=== PATIENT | female | born 1950 | race American Indian/Alaskan Native ===

== ENCOUNTER 2017-09-08 21:55 | Emergency (ER) | payer MEDICARE ==
[2017-09-08 23:31] VITALS: BP 154/82
[2017-09-09 03:24] LABS: Hematocrit 38.3 % (30.3-42.9); Hemoglobin 12.9 gm/dl (10.1-14.3); Mean Corpuscular HGB Conc 34 % (30-34); Mean Corpuscular Hemoglobin 30 pg (28-32); Mean Corpuscular Volume 90 fl (79-97); Platelet Count 319 K/mm3 (140-440); Red Blood Count 4.24 M/mm3 (3.65-5.03); Red Cell Distribution Width 13.2 % (13.2-15.2)
[2017-09-09 03:39] LABS: Alanine Aminotransferase 29 units/L (7-56); Albumin 4.5 g/dL (3.9-5); BUN/Creatinine Ratio 10; Blood Urea Nitrogen 10 mg/dL (7-17); Calcium 9.7 mg/dL (8.4-10.2); Hemolysis Index 0
--- NOTE | 2017-09-09 03:56 | Emergency Department Report ---
- General Chief complaint: Skin Rash Stated complaint: WOUNDS/RASH Time Seen by Provider: 09/09/17 01:37 Source: patient Mode of arrival: Ambulatory Limitations: No Limitations - History of Present Illness Initial comments: 66-year-old -[place] female comes in for rash stat is located near her incision from her kidney removal on 08/04/2017. Patient reports that decision has been draining in the middle abdominal incision is tender and has a rash around it with redness to the skin no fever reported. Patient reports that this rash is very itchy that she is not able to take any hydralazine of Benadryl since in the past has made her feel funny. Patient reports that she was placed on Keflex for a mild cellulitis to one of the incisions. MD complaint: rash -: days(s) (4) Severity scale (0 -10): 4 - Related Data Home Medications Medication Instructions Recorded Confirmed Last Taken Benazepril (Nf) 40 mg PO DAILY 12/30/12 12/30/12 Unknown Docusate Sodium [Colace CAP] 100 mg PO BID 12/30/12 12/30/12 Unknown Duloxetine HCl [Cymbalta] 120 mg PO DAILY 12/30/12 12/30/12 Unknown Levothyroxine [Synthroid] 100 mcg PO DAILY 12/30/12 12/30/12 Unknown Pravastatin Sodium [Pravastatin] 20 mg PO QHS 12/30/12 12/30/12 Unknown Zolpidem [Ambien] 10 mg PO QHS 12/30/12 12/30/12 Unknown amLODIPine [Norvasc] 5 mg PO BID 12/30/12 12/30/12 Unknown cloNIDine [Catapres] 0.2 mg PO BID 12/30/12 12/30/12 Unknown metFORMIN [Glucophage] 500 mg PO BID 12/30/12 12/30/12 Unknown risperiDONE [RisperDAL] 1 mg PO QHS 12/30/12 12/30/12 Unknown Previous Rx's Medication Instructions Recorded Last Taken Type Aspirin EC [Aspirin Enteric Coated 81 mg PO QDAY #30 tablet. 12/30/12 Unknown Rx TAB] Famotidine [Pepcid] 10 mg PO BID #60 tablet 12/30/12 Unknown Rx Nystatin Cream [Mycostatin Cream] 1 applic TP BID #1 tube 09/09/17 Unknown Rx Allergies Allergy/AdvReac Type Severity Reaction Status Date / Time hydralazine [Hydralazine] Allergy Rash Verified 12/29/12 22:29 Abscess Boil HPI - HPI Chief Complaint: Skin Rash Stated Complaint: WOUNDS/RASH Time Seen by Provider: 09/09/17 01:37 Home Medications: Home Medications Medication Instructions Recorded Confirmed Last Taken Benazepril (Nf) 40 mg PO DAILY 12/30/12 12/30/12 Unknown Docusate Sodium [Colace CAP] 100 mg PO BID 12/30/12 12/30/12 Unknown Duloxetine HCl [Cymbalta] 120 mg PO DAILY 12/30/12 12/30/12 Unknown Levothyroxine [Synthroid] 100 mcg PO DAILY 12/30/12 12/30/12 Unknown Pravastatin Sodium [Pravastatin] 20 mg PO QHS 12/30/12 12/30/12 Unknown Zolpidem [Ambien] 10 mg PO QHS 12/30/12 12/30/12 Unknown amLODIPine [Norvasc] 5 mg PO BID 12/30/12 12/30/12 Unknown cloNIDine [Catapres] 0.2 mg PO BID 12/30/12 12/30/12 Unknown metFORMIN [Glucophage] 500 mg PO BID 12/30/12 12/30/12 Unknown risperiDONE [RisperDAL] 1 mg PO QHS 12/30/12 12/30/12 Unknown Previous Rx's Medication Instructions Recorded Last Taken Type Aspirin EC [Aspirin Enteric Coated 81 mg PO QDAY #30 tablet.dr 12/30/12 Unknown Rx TAB] Famotidine [Pepcid] 10 mg PO BID #60 tablet 12/30/12 Unknown Rx Nystatin Cream [Mycostatin Cream] 1 applic TP BID #1 tube 09/09/17 Unknown Rx Allergies/Adverse Reactions: Allergies Allergy/AdvReac Type Severity Reaction Status Date / Time hydralazine [Hydralazine] Allergy Rash Verified 12/29/12 22:29 ED Review of Systems ROS: Stated complaint: WOUNDS/RASH Other details as noted in HPI Constitutional: denies: chills, fever Gastrointestinal: denies: abdominal pain, nausea, diarrhea Skin: rash, pruritus Neurological: denies: headache, weakness, paresthesias ED Past Medical Hx - Past Medical History Previous Medical History?: Yes Hx Hypertension: Yes Hx Congestive Heart Failure: No Hx Diabetes: Yes Hx Arthritis: Yes Hx Seizures: Yes Hx Psychiatric Treatment: Yes (PTSD) Hx Asthma: Yes Hx COPD: No Additional medical history: MVP, spinal stenosis, hypothyroidism, sleep apnea - Surgical History Past Surgical History?: Yes Additional Surgical History: hysterectomy, sinus surgery, rectoseal surgery, goiter removed, Left Kidney removed 08/04/17 - Social History Smoking Status: Never Smoker - Medications Home Medications: Home Medications Medication Instructions Recorded Confirmed Last Taken Type Aspirin EC [Aspirin Enteric Coated 81 mg PO QDAY #30 tablet.dr 12/30/12 Unknown Rx TAB] Benazepril (Nf) 40 mg PO DAILY 12/30/12 12/30/12 Unknown History Docusate Sodium [Colace CAP] 100 mg PO BID 12/30/12 12/30/12 Unknown History Duloxetine HCl [Cymbalta] 120 mg PO DAILY 12/30/12 12/30/12 Unknown History Famotidine [Pepcid] 10 mg PO BID #60 tablet 12/30/12 Unknown Rx Levothyroxine [Synthroid] 100 mcg PO DAILY 12/30/12 12/30/12 Unknown History Pravastatin Sodium [Pravastatin] 20 mg PO QHS 12/30/12 12/30/12 Unknown History Zolpidem [Ambien] 10 mg PO QHS 12/30/12 12/30/12 Unknown History amLODIPine [Norvasc] 5 mg PO BID 12/30/12 12/30/12 Unknown History cloNIDine [Catapres] 0.2 mg PO BID 12/30/12 12/30/12 Unknown History metFORMIN [Glucophage] 500 mg PO BID 12/30/12 12/30/12 Unknown History risperiDONE [RisperDAL] 1 mg PO QHS 12/30/12 12/30/12 Unknown History Nystatin Cream [Mycostatin Cream] 1 applic TP BID #1 tube 09/09/17 Unknown Rx ED Physical Exam - General Limitations: No Limitations General appearance: alert, in no apparent distress - Head Head exam: Present: atraumatic, normocephalic - Eye Eye exam: Present: normal appearance - Respiratory Respiratory exam: Present: normal lung sounds bilaterally - Cardiovascular Cardiovascular Exam: Present: regular rate, normal rhythm. Absent: systolic murmur, diastolic murmur, rubs, gallop - Neurological Exam Neurological exam: Present: alert, oriented X3 - Skin Skin exam: Present: rash, erythema, other (no discharge noted) ED Course Vital Signs 09/08/17 23:26 Temperature 98.2 F Pulse Rate 66 Respiratory 20 Rate Blood Pressure 154/82 O2 Sat by Pulse 98 Oximetry ED Medical Decision Making - Medical Decision Making Patient has been evaluated by this provider fast track. CBC CMP ordered and completed with normal values mild elevation of her glucose Patient is currently on Keflex Will discharge patient on nystatin cream Discussed the patient is important for her to follow up with her primary care provider or her surgeon. Patient verbalizes understanding. Critical care attestation.: If time is entered above; I have spent that time in minutes in the direct care of this critically ill patient, excluding procedure time. ED Disposition Clinical Impression: Rash Disposition: DC-01 TO HOME OR SELFCARE Is pt being admited?: No Does the pt Need Aspirin: No Condition: Stable Instructions: Acute Rash (ED) Additional Instructions: Please apply cream twice a day to the rash. If symptoms persist or gets worse please follow up with her primary care provider. Prescriptions: Nystatin Cream [Mycostatin Cream] 1 applic TP BID #1 tube Referrals: PRIMARY CARE, [Primary Care Provider] - 3-5 Days Forms: Accompanied Note
[2017-09-09 06:22] LABS: Band Neutrophils # (Manual) 0.1 K/mm3; Total Cells Counted 100
[2017-09-09 06:24] LABS: RBC Morphology Normal
== END 2017-09-09 04:24 | disposition home or self-care (01) ==
LOC: ED 21:55
DX: R21 Rash and other nonspecific skin eruption (principal); I10 Essential (primary) hypertension; E11.9 Type 2 diabetes mellitus without complications; M19.90 Unspecified osteoarthritis, unspecified site; J45.909 Unspecified asthma, uncomplicated; F43.10 Post-traumatic stress disorder, unspecified; E03.9 Hypothyroidism, unspecified; Z90.710 Acquired absence of both cervix and uterus; Z90.5 Acquired absence of kidney; Z88.8 Allergy status to other drugs, medicaments and biological substances
CPT/HCPCS: 36415; 80053; 85007; 85025; 99283